=== PATIENT | female | born 1970 | race Asian ===

== ENCOUNTER 2016-10-24 23:33 | Emergency (ER) | payer OTHER ==
[2016-10-25 00:13] VITALS: BP 174/96; PULSE 100; TEMP 97.6; BMI 31.2
[2016-10-25] MEDS ORDERED: ALBUTEROL SO4 2.5/IPRATROPIUM 0.5 INH SOL 3 ML VIAL.NEB. NEB ONE (00:33)
--- NOTE | 2016-10-25 00:49 | PDOC ---
History of Present Illness - General Chief Complaint: Respiratory Stated Complaint: SOB/ASTHMA Time Seen by Provider: 10/25/16 00:02 - History of Present Illness Initial Comments: 10/25/16 00:37 Patient is a 46 year old female with a history of hypothyroid who presents with a 1 week history of SOB and cough. Patient reports SOB and productive cough beginning 1 week ago for which she was evaluated by her PCP and prescribed a zpak. The patient had a reported fever at that time of 101. She finished her zpak 3 days ago but continued to experience SOB and cough prompting her visit to the ED today. Her fevers have resolved since she finished the zpak and she has continued to use albuterol and symbacort throughout the last week with some mild relief of her symptoms. She denies any hemoptysis, nausea, vomiting, chest pain, or abdominal pain. Past History - Past Medical History Allergies/Adverse Reactions: Allergies Allergy/AdvReac Type Severity Reaction Status Date / Time pollen extracts Allergy Intermediate Difficulty Verified 10/25/16 01:46 Breathing POLLEN Allergy Intermediate Difficulty Uncoded 07/16/15 12:30 Breathing Home Medications: Ambulatory Orders Levothyroxine [Synthroid -] 50 mcg PO DAILY 08/27/12 Loratadine [Claritin -] 10 mg PO DAILY 08/27/12 Montelukast Na [Singulair -] 10 mg PO HS 08/27/12 Mag Carb/Al Hydrox/Alginic AC [Gaviscon Liquid] 355 ml PO PRN PRN #0 oral.susp 08/30/12 Ranitidine [Zantac -] 150 mg PO BID #1 tablet 08/30/12 Prednisone [Deltasone] 60 mg PO DAILY #12 tablet 10/25/16 Anemia: Yes Asthma: Yes Cancer: No Cardiac Disorders: No CVA: No COPD: No CHF: No Dementia: No Diabetes: No GI Disorders: Yes Disorders: No HTN: No Hypercholesterolemia: No Liver Disease: No Seizures: No Thyroid Disease: Yes - Surgical History Abdominal Surgery: No Appendectomy: No Cardiac Surgery: No Cholecystectomy: No Lung Surgery: No Neurologic Surgery: No - Immunization History Td Vaccination: Yes (AT [facility]) - Psycho/Social/Smoking Cessation Hx Anxiety: No Suicidal Ideation: No Smoking Status: No Smoking History: Never smoked Number of Cigarettes Smoked Daily: 0 Hx Alcohol Use: No Drug/Substance Use Hx: No Substance Use Type: None Review of Systems - Review of Systems Constitutional: No: Chills, Fever HEENTM: Yes: Nose Congestion Respiratory: Yes: Cough, Shortness of Breath. No: Hemoptysis Cardiac (ROS): No: Chest Pain, Palpitations ABD/GI: No: Constipated, Diarrhea, Nausea, Vomiting : No: Dysuria Integumentary: No: Rash Neurological: No: Headache, Dizziness *Physical Exam - Vital Signs Last Vital Signs Temp Pulse Resp BP Pulse Ox 97.6 F 100 H 20 174/96 99 10/25/16 00:10 10/25/16 00:10 10/25/16 00:10 10/25/16 00:10 10/25/16 00:10 - Physical Exam Comments: 10/25/16 00:51 General Appearance: Nourished. No Apparent Distress HEENT: No Pharyngeal Erythema, Tonsillar Exudate, Tonsillar Erythema Respiratory/Chest: Lungs Clear, Bilateral Breath Sounds, Expiratory wheezes noted on auscultation. No Crackles, Rales, Rhonchi Cardiovascular: Regular Rhythm, Regular Rate. No Murmur, Gallop/S3, Gallop/S4 Gastrointestinal/Abdominal: Normal Bowel Sounds, Soft. No Guarding, Rebound, Tenderness Extremity: Normal Capillary Refill. No Coldness, Cyanosis Integumentary: Normal Color, Dry, Warm Neurologic: Fully Oriented, Alert, Normal Mood/Affect, Normal Response ED Treatment Course - LABORATORY CBC & Chemistry Diagram: 10/25/16 01:27 10/25/16 01:27 - RADIOLOGY Radiology Studies Ordered: Category Date Time Status CHEST PA & LAT [RAD] Stat Radiology 10/25/16 00:33 Ordered Medical Decision Making - Medical Decision Making 10/25/16 00:53 Patient is a 46 year old female with a history of hypothyroidism who presents with a 1 week history of SOB and cough. Patient has completed a zpak however it is still possible that she could have a pneumonia. We will obtain a chest radiograph to evaluate for pneumonia as well as obtain a cbc and cmp. It is likely that she is experiencing asthma symptoms as well and we will provide a duoneb to evaluate for improvement. 10/25/16 04:13 Patient's WBC was slightly elevated. We reviewed her chest radiograph which shows no new infiltrates or consolidations pending official read. We discussed the results with the patient and will discharge home with a predinsone burst. Patient is agreeable to the plan. *DC/Admit/Observation/Transfer Diagnosis at time of Disposition: Reactive airway disease Qualifiers: Asthma severity: unspecified severity Asthma complication type: uncomplicated Qualified Code(s): J45.909 - Unspecified asthma, uncomplicated - Discharge Dispostion Disposition: HOME Condition at time of disposition: Improved - Prescriptions Prescriptions: Prednisone [Deltasone] 60 mg PO DAILY #12 tablet - Referrals Referrals: Holly Mayer MD [Primary Care Provider] - - Patient Instructions Printed Discharge Instructions: DI for Acute Bronchitis Additional Instructions: Please return to the ER if you experience worsening symptoms including worsening SOB or difficulty breathing. Please follow up with your Primary care provider to discuss your ER visit. Please take your Predinsone tablet once a day for 4 days. - Attestations Physician Attestion: 10/25/16 03:37 I, Dr. Tee Suero, attest that this document has been prepared under my direction and personally reviewed by me in its entirety. I further attest, that it accurately reflects all work, treatment, procedures and medical decision -making performed by me.
--- NOTE | 2016-10-25 01:01 | PDOC ---
Attending Attestation - Resident Resident Name: Tee Suero - ED Attending Attestation I have performed the following: I have examined & evaluated the patient, The case was reviewed & discussed with the resident, I agree w/resident's findings & plan, Exceptions are as noted - HPI HPI: 10/25/16 00:56 This is a 46 yo F h/o hypothyroid (no reported h/o Asthma, she is currently taking Symbicort) who presents with a 1 week h/o SOB and cough. Was seen by PMD, prescribed Azithromycin. Pt states that this has not improved her breathing which typically improves her symptoms. No chest pain No hemoptysis No recent travel - Physicial Exam PE: 10/25/16 01:01 RRR Expiratory wheezing No abd tenderness - Medical Decision Making 10/25/16 01:01 Will do: Ángel Zelaya Solumedrol CXR Re assess Pt signed out to Dr Rowe
[2016-10-25 01:33] LABS: BASOPHIL 0.8 % (0-2.0); EOSINOPHIL 1.5 % (0-4.5); MCHC 30.8 g/dl (32.0-36.0); MEAN CELL VOLUME 60.7 fl (80-96); MEAN PLT VOLUME 8.8 fl (7.5-11.1); NEUTROPHILS 60.7 % (42.8-82.8); PLATELET COUNT 279 K/MM3 (134-434); RDW 15.2 % (11.6-15.6); WHITE BLOOD COUNT 11.1 K/mm3 (4.0-10.0)
[2016-10-25 01:34] LABS: MCH 18.7 pg (25.7-33.7)
[2016-10-25] MEDS ORDERED: predniSONE 20 MG TABLET (UD) PO ONE (01:35)
[2016-10-25 01:57] LABS: ALBUMIN 4.2 g/dl (3.4-5.0); ANION GAP 7 (8-16); BILIRUBIN,TOTAL 0.4 mg/dL (0.2-1.0); CALCIUM 9.3 mg/dL (8.5-10.1); CO2 30 mmol/L (21-32); CREATININE 0.7 mg/dL (0.55-1.02); GLUCOSE,RANDOM 120 mg/dL (74-106); SGOT/AST 24 U/L (15-37); SGPT/ALT 49 U/L (12-78); TOT PROT 7.8 g/dl (6.4-8.2)
[2016-10-25] MEDS ORDERED: predniSONE 20 MG TABLET (UD) ONE (01:58)
[2016-10-25 01:59] LABS: ALK PHOS 73 U/L (45-117); TROPONIN I < 0.02 ng/ml (0.00-0.05)
[2016-10-25 07:46] LABS: ANISOCYTOSIS 2+; MICROCYTOSIS 2+
--- NOTE | 2016-10-26 13:57 | EKG ---
Test Reason : Blood Pressure : / mmHG Vent. Rate : 095 BPM Atrial Rate : 095 BPM P-R Int : 138 ms QRS Dur : 086 ms QT Int : 380 ms P-R-T Axes : 046 027 -06 degrees QTc Int : 477 ms NORMAL SINUS RHYTHM NONSPECIFIC T WAVE ABNORMALITY ABNORMAL ECG WHEN COMPARED WITH ECG OF 07-MAR-2008 07:12, T WAVE INVERSION NOW EVIDENT IN ANTERIOR LEADS QT HAS LENGTHENED Confirmed by ELLYN OAKES, NAEEM ([id number]) on 10/26/2016 1:57:08 PM Referred By: Confirmed By:NAEEM RAGLAND MD
== END 2016-10-25 03:00 | disposition home or self-care (01) ==
LOC: JER 23:33
DX: J45.909 Unspecified asthma, uncomplicated (principal); E03.9 Hypothyroidism, unspecified
CPT/HCPCS: 36415; 71020-TC; 80053; 82550; 84484; 85025; 93005; 93010; 99282-25

== ENCOUNTER 2017-01-28 11:16 | Emergency (ER) | payer OTHER ==
[2017-01-28] MEDS ORDERED: KETOROLAC TROMETHAMINE 30 MG/1 ML VIAL IVPUSH ONE (11:56)
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
[2017-01-28] MEDS ORDERED: KETOROLAC TROMETHAMINE 15 MG/ML VIAL ONE (12:10)
[2017-01-28] MEDS ORDERED: IBUPROFEN 600 MG TABLET (FP) PO ONE (12:21)
[2017-01-28] MEDS ORDERED: IBUPROFEN 400 MG TABLET (FP) PO ONE (12:37)
[2017-01-28 13:06] VITALS: BP 139/49; PULSE 86; TEMP 98.2; BMI 31.2
[2017-01-28 13:36] LABS: ALBUMIN 4.3 g/dl (3.4-5.0); ALK PHOS 67 U/L (45-117); ANION GAP 10 (8-16); BILIRUBIN,TOTAL 0.5 mg/dL (0.2-1.0); CALCIUM 8.6 mg/dL (8.5-10.1); CO2 26 mmol/L (21-32); CREATININE 0.7 mg/dL (0.55-1.02); GLUCOSE,RANDOM 85 mg/dL (74-106); SGOT/AST 31 U/L (15-37); SGPT/ALT 53 U/L (12-78); TOT PROT 7.8 g/dl (6.4-8.2)
[2017-01-28 13:38] LABS: CPK 87 IU/L (26-192); TROPONIN I < 0.02 ng/ml (0.00-0.05)
[2017-01-28 13:44] LABS: BASOPHIL 0.8 % (0-2.0); EOSINOPHIL 1.2 % (0-4.5); MCHC 31.3 g/dl (32.0-36.0); MEAN CELL VOLUME 61.5 fl (80-96); MEAN PLT VOLUME 10.7 fl (7.5-11.1); NEUTROPHILS 73.6 % (42.8-82.8); PLATELET COUNT 250 K/MM3 (134-434); WHITE BLOOD COUNT 10.4 K/mm3 (4.0-10.0)
[2017-01-28 13:49] LABS: MCH 19.2 pg (25.7-33.7)
[2017-01-28 18:50] LABS: ANISOCYTOSIS 2+; HYPOCHROMIA 3+; PLATELET ESTIMATE ADEQUATE (NORMAL)
[2017-01-28 18:51] LABS: MICROCYTOSIS 2+
[2017-01-28 18:55] LABS: CPK 75 IU/L (26-192); TROPONIN I < 0.02 ng/ml (0.00-0.05)
--- NOTE | 2017-01-29 13:03 | EKG ---
Test Reason : Blood Pressure : / mmHG Vent. Rate : 066 BPM Atrial Rate : 066 BPM P-R Int : 150 ms QRS Dur : 078 ms QT Int : 382 ms P-R-T Axes : 033 023 009 degrees QTc Int : 400 ms NORMAL SINUS RHYTHM INFERIOR INFARCT , AGE UNDETERMINED CANNOT RULE OUT ANTERIOR INFARCT , AGE UNDETERMINED ABNORMAL ECG WHEN COMPARED WITH ECG OF 25-OCT-2016 01:19, NONSPECIFIC T WAVE ABNORMALITY HAS REPLACED INVERTED T WAVES IN ANTERIOR LEADS QT HAS SHORTENED Confirmed by CHEYANNE ROJAS MD ([id number]) on 01/29/2017 1:02:45 PM Referred By: Confirmed By:CHEYANNE ROJAS MD
== END 2017-01-28 19:20 | disposition home or self-care (01) ==
LOC: JER 11:16
DX: R07.89 Other chest pain (principal); S13.4XXA Sprain of ligaments of cervical spine, initial encounter; V43.52XA Car driver injured in collision with other type car in traffic accident, initial encounter; Y92.414 Local residential or business street as the place of occurrence of the external cause; Y93.89 Activity, other specified; Y99.9 Unspecified external cause status
CPT/HCPCS: 36415; 71020-TC; 80053; 82550; 84484; 85025; 93005; 93010; 99285-25

== ENCOUNTER 2018-04-26 14:59 | Emergency (ER) | payer BC, OTHER ==
[2018-04-26 15:20] VITALS: BP 146/83; PULSE 110; TEMP 97.8; BMI 31.2
--- NOTE | 2018-04-26 15:21 | PDOC ---
Rapid Medical Evaluation Chief Complaint: CVA/TIA Time Seen by Provider: 04/26/18 15:15 Medical Evaluation: Allergies Allergy/AdvReac Type Severity Reaction Status Date / Time pollen extracts Allergy Intermediate Difficulty Verified 01/28/17 11:34 Breathing POLLEN Allergy Intermediate Difficulty Uncoded 01/28/17 11:34 Breathing 04/26/18 15:17 I have performed a brief in-person evaluation of this patient. The patient presents with a chief complaint of:left sided numbness with mild headache started yesterday/ improved now. Sent from Dr Stapleton office Pertinent physical exam findings:A O x 3 , no focal defects,. I have ordered the following: CT head, EKG, The patient will proceed to the ED for further evaluation. Discharge Disposition - Diagnosis Numbness and tingling - Referrals Referrals: Holly Mayer MD [Primary Care Provider] - - Patient Instructions - Post Discharge Activity
--- NOTE | 2018-04-26 16:06 | PDOC ---
History of Present Illness - General Chief Complaint: CVA/TIA Stated Complaint: NUMBNESS Time Seen by Provider: 04/26/18 15:15 History Source: Patient Exam Limitations: No Limitations - History of Present Illness Initial Comments: Pt is a 47 yo F, with PMH of asthma and hypothyroidism, who is presenting with complaints of L-sided (LUE and LLE) numbness since last night at 8 pm. Pt states the numbness is intermittent, and lasts a few minutes when it comes. She states she has started a new job a few months ago, and has been stressed over the past 2 days, as her left the city and she has been drinking more caffeine (2-3 cups of coffee per day) to keep up with work. 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 Pt denies any fevers/chills, headache, vision changes, syncope, chest pain, palpitations, SOB, nausea/vomiting, abdominal pain, urinary symptoms, diarrhea/constipation, or leg swelling. Social: Pt denies any cigarette, alcohol, or drug use. Pt denies any recent travel or sick contacts. Surgical: tubal ligation. Family: mother - DM, HTN, stroke (age 69); father - DM, HTN 04/26/18 16:55 Past History - Travel Traveled outside of the country in the last 30 days: No Close contact w/someone who was outside of country & ill: No - Past Medical History Allergies/Adverse Reactions: Allergies Allergy/AdvReac Type Severity Reaction Status Date / Time pollen extracts Allergy Intermediate Difficulty Verified 01/28/17 11:34 Breathing POLLEN Allergy Intermediate Difficulty Uncoded 01/28/17 11:34 Breathing Home Medications: Ambulatory Orders Levothyroxine [Synthroid -] 50 mcg PO DAILY 08/27/12 Loratadine [Claritin] 0 mg PO ASDIR 01/28/17 Montelukast Sodium [Singulair] 10 mg PO ASDIR 01/28/17 Anemia: No Asthma: Yes Cancer: No Cardiac Disorders: No CVA: No COPD: No CHF: No Dementia: No Diabetes: No GI Disorders: No Disorders: No HTN: No Hypercholesterolemia: No Liver Disease: No Seizures: No Thyroid Disease: Yes (HYPOTHYROID) - Surgical History Abdominal Surgery: No Appendectomy: No Cardiac Surgery: No Cholecystectomy: No Lung Surgery: No Neurologic Surgery: No - Immunization History Td Vaccination: Yes (AT [facility]) Immunization Up to Date: Yes - Suicide/Smoking/Psychosocial Hx Smoking Status: No Smoking History: Never smoked Have you smoked in the past 12 months: No Number of Cigarettes Smoked Daily: 0 Information on smoking cessation initiated: No Hx Alcohol Use: No Drug/Substance Use Hx: No Substance Use Type: None Review of Systems - Review of Systems Able to Perform ROS?: Yes Is the patient limited Irish proficient: No Constitutional: Yes: Weight Stable. No: Chills, Diaphoresis, Fever, Loss of Appetite, Weakness HEENTM: No: Blurred Vision, Recent change in vision, Double Vision, Nose Congestion, Throat Pain, Throat Swelling Respiratory: No: Cough, Orthopnea, Shortness of Breath Cardiac (ROS): No: Chest Pain, Edema, Irregular Heart Rate, Lightheadedness, Palpitations, Syncope, Chest Tightness ABD/GI: No: Constipated, Diarrhea, Nausea, Poor Appetite, Poor Fluid Intake, Vomiting : No: Burning, Dysuria, Frequency, Pain, Urgency Musculoskeletal: No: Back Pain, Joint Pain, Muscle Pain, Muscle Weakness, Neck Pain Integumentary: No: Flushing, Rash Neurological: Yes: See HPI, Numbness, Paresthesia, Tingling. No: Headache, Seizure, Tremors, Weakness, Unsteady Gait, Ataxia, Dizziness Psychiatric: Yes: Stressors (change in work, more caffeine, left for work). No: Sleep Pattern Change, Change in Appetite Endocrine: No: Excessive Sweating, Flushing, Intolerance to Cold, Intolerance to Heat, Increased Urine, Change in Weight Hematologic/Lymphatic: No: Anemia, Blood Clots, Easy Bleeding, Easy Bruising *Physical Exam - Vital Signs Last Vital Signs Temp Pulse Resp BP Pulse Ox 97.8 F 110 H 20 146/83 98 04/26/18 15:16 04/26/18 15:16 04/26/18 15:16 04/26/18 15:16 04/26/18 15:16 - Physical Exam General Appearance: Yes: Nourished, Appropriately Dressed. No: Apparent Distress HEENT: positive: EOMI, NANCY, Normal ENT Inspection, Normal Voice, Pharynx Normal , Hearing Grossly Normal. negative: Scleral Icterus (R), Scleral Icterus (L), Pharyngeal Erythema, Tonsillar Exudate, Tonsillar Erythema, Rhinorrhea Neck: positive: Trachea midline, Normal Thyroid, Supple. negative: Tender, Rigid, Lymphadenopathy (R), Lymphadenopathy (L), Rigidity Respiratory/Chest: positive: Lungs Clear, Normal Breath Sounds. negative: Chest Tender, Respiratory Distress, Accessory Muscle Use, Crackles, Wheezing Cardiovascular: positive: Regular Rhythm, Regular Rate, S1, S2. negative: Edema , JVD, Murmur Vascular Pulses: Carotid (R): 4+, Carotid (L): 4+ Gastrointestinal/Abdominal: positive: Normal Bowel Sounds, Flat, Soft. negative : Tender, Organomegaly, Pulsatile Mass, Distended, Guarding, Rebound Rectal Exam: positive: deferred Lymphatic: negative: Adenopathy, Tenderness Musculoskeletal: positive: Normal Inspection. negative: CVA Tenderness, Decreased Range of Motion, Vertebral Tenderness Extremity: positive: Normal Capillary Refill, Normal Inspection, Normal Range of Motion, Pelvis Stable. negative: Tender, Pedal Edema Integumentary: positive: Normal Color, Dry, Warm. 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 negative: EOM Palsy, Facial Droop , Numbness, Sensory Deficit, Finger to Nose Deep Tendon Reflexes: Knee (L): 3+, Knee (R): 3+, Bicep (L): 3+, Bicep (R): 3+ Moderate Sedation - Procedure Monitoring Vital Signs: Procedure Monitoring Vital Signs Temperature 97.8 F 04/26/18 15:16 Pulse Rate 110 H 04/26/18 15:16 Respiratory Rate 20 04/26/18 15:16 Blood Pressure 146/83 04/26/18 15:16 O2 Sat by Pulse Oximetry (%) 98 04/26/18 15:16 ED Treatment Course - LABORATORY CBC & Chemistry Diagram: 04/26/18 16:41 04/26/18 16:41 Medical Decision Making - Medical Decision Making Pt was seen at bedside, also will be seen by attending Dr. Barbosa. Pt presenting with complaints of L-sided (LUE and LLE) numbness since last night at 8 pm. Pt states the numbness is intermittent, and lasts a few minutes when it comes. She states she has started a new job a few months ago, and has been stressed over the past 2 days, as her left the city and she has been drinking more caffeine (2-3 cups of coffee per day) to keep up with work. 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 Pt denies any fevers/chills, headache, vision changes, syncope , chest pain, palpitations, SOB, nausea/vomiting, abdominal pain, urinary symptoms, diarrhea/constipation, or leg swelling. Pt afebrile, vitals stable. 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 Clear heart and lung sounds. No b/l pedal edema, no JVD. No abdominal or CVA tenderness. PE benign. Considering TIA vs stroke vs anxiety vs electrolyte imbalances (K, Ca) vs use of stimulants (caffeine) Ordered work-up including CBC, CMP, PT/INR, ECG, non-contrast head CT (r/o ischemia, bleed). No interventions required at this time, pt resting comfortably. Will continue to reassess pt and monitor for symptomatic improvement. ECG: HR 96, intervals WNL. NSR. No significant ST segment elevations or depressions. TWI in III, only change since prior ECG (2016). 04/26/18 16:46 Pending CMP and test so pt can be taken for CT scan. 04/26/18 16:54 CBC, coags and CMP WNL. Serum negative. Pt taken for CT scan -- pending results. 04/26/18 17:[address] evidence of acute intracranial pathology. Considering normal lab results and imaging, pt can be discharged to home with follow-up. Pt advised to follow-up with PCP in 1-2 days. Strict return precautions provided with pt understanding. 04/26/18 17:49 *DC/Admit/Observation/Transfer Diagnosis at time of Disposition: Numbness and tingling - Discharge Dispostion Disposition: HOME Condition at time of disposition: Improved Decision to Admit order: No - Referrals Referrals: Holly Mayer MD [Primary Care Provider] - - Patient Instructions Printed Discharge Instructions: DI for Numbness/tingling Additional Instructions: You were seen in the ER today for numbness in your L arm and leg. The results of your labs and imaging today were normal. Please follow-up with your primary care doctor within 1-2 days to discuss your visit and make sure your symptoms have improved. Please return to the ER if you have any worsening pain, development of fevers or chills, loss of consciousness, inability to tolerate food or fluids, or any other concerns. - Post Discharge Activity
--- NOTE | 2018-04-26 16:23 | PDOC ---
Attending Attestation - Resident Resident Name: Candelaria Allison - ED Attending Attestation I have performed the following: I have examined & evaluated the patient, The case was reviewed & discussed with the resident, I agree w/resident's findings & plan, Exceptions are as noted - HPI HPI: 04/26/18 18:07 47 yo femlae experienced left sided facial tingling and left sided arm and leg tingling that resolved - Physicial Exam PE: 04/26/18 18:10 alert,conversant 47 yo female in no acute distress head ncat neck supple lungs cta b/l cvs [id number] abd no rebound,no guarding ext no edema skin warm and dry neuro axox3,no ataxia,motor strength 5/5,dtr+2,no drift,no visual field cuts - Medical Decision Making 04/26/18 18:12 ct scan head: no acute intracranial pathology,no bleed,no infarct,there is encephalomalacia 04/26/18 18:14 ekg nsr @ 96 bpm
[2018-04-26 17:19] LABS: BASO % 1.1 % (0-2.0); EOS % 0.9 % (0-4.5); HEMATOCRIT 35.5 % (32.4-45.2); HEMOGLOBIN 11.6 GM/dL (10.7-15.3); LYMPH % 14.9 % (8-40); MCHC 32.8 g/dl (32.0-36.0); MEAN PLT VOLUME 9.6 fl (7.5-11.1); MONO % 4.9 % (3.8-10.2); NEUT % 78.2 % (42.8-82.8); PLATELET COUNT 303 K/MM3 (134-434); RBC 5.82 M/mm3 (3.60-5.2); RDW 16.1 % (11.6-15.6); WHITE BLOOD COUNT 7.7 K/mm3 (4.0-10.0)
[2018-04-26 17:28] LABS: ALBUMIN 4.2 g/dl (3.4-5.0); ALK PHOS 62 U/L (45-117); ANION GAP 7 MMOL/L (8-16); BILIRUBIN,TOTAL 0.3 mg/dL (0.2-1); BLOOD UREA NITROGEN 7 mg/dL (7-18); CALCIUM 9.1 mg/dL (8.5-10.1); CHLORIDE 104 mmol/L (98-107); CO2 27 mmol/L (21-32); CREATININE 0.7 mg/dL (0.55-1.3); GLUCOSE,RANDOM 96 mg/dL (74-106); POTASSIUM 4.1 mmol/L (3.5-5.1); SGOT/AST 25 U/L (15-37); SGPT/ALT 31 U/L (13-61); SODIUM 139 mmol/L (136-145); TOT PROT 7.8 g/dl (6.4-8.2)
[2018-04-26 17:30] LABS: INR 1.01 (0.83-1.09); PROTHROMBIN TIME (PATIENT) 11.9 SEC (9.7-13.0)
[2018-04-26 18:54] LABS: ANISOCYTOSIS 1+
--- NOTE | 2018-04-27 18:15 | EKG ---
Test Reason : Blood Pressure : / mmHG Vent. Rate : 096 BPM Atrial Rate : 096 BPM P-R Int : 146 ms QRS Dur : 084 ms QT Int : 334 ms P-R-T Axes : 045 013 -07 degrees QTc Int : 421 ms NORMAL SINUS RHYTHM CANNOT RULE OUT ANTERIOR INFARCT (CITED ON OR BEFORE 28-JAN-2017) ABNORMAL ECG Confirmed by MD JOHNNY, PER ([id number]) on 04/27/2018 6:15:34 PM Referred By: Confirmed By:PER UTRNER MD
== END 2018-04-26 18:20 | disposition home or self-care (01) ==
LOC: JER 14:59
DX: R20.2 Paresthesia of skin (principal); J45.909 Unspecified asthma, uncomplicated; E03.9 Hypothyroidism, unspecified
CPT/HCPCS: 36415; 70450-TC; 80053; 84703; 85025; 85610; 93005; 93010; 99283-25